=== PATIENT | female | born 1980 ===

== ENCOUNTER 2017-05-12 19:39 | Inpatient (IN) | payer BC, OTHER ==
[2017-05-12] MEDS: Lactated Ringer's 1,000 ML IV SCH (21:12)
--- NOTE | 2017-05-12 21:54 | OBHP ---
Datetime: 05/12/2017 21:49 IP Adm Impression: Term, intrauterine IP Admit Plan: Admit to unit Admit Comment, IP Provider: 36 y/o @ 40.1 wks GA MOLLY 05/11/17 reports having lower back pain and right sided hip pain worsening since last few weeks of , with cramping pain increasing in frequency and intensity. pt deies any lof, vb, and reports normal movements. Pt states has b een receving regular care and was infomred also by MD that fluid of baby was decreasing. Pt deneis any discharge, itching, bowel or bladder complaints. 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: denies hx of abnormalpap, fibroids, ovarian cyst, STI PMH: deines PSH: knee surgery FHX; non contriubotry SHX: negative etoh/tobacc/drugs MEDS: PNV A/P 36 y/o @ 40.1 wks GA, AMA, post EDC in early labor -admit to L+D -pain managment -npo, ivf -cont toco and efm -cervidil plan as per PMD - Pelvic Type - PN: Adequate Extremities - PN: Normal Abdomen - PN: Normal Back - PN: Normal Breast - PN: Not Done Lungs - PN: Normal Heart - PN: Normal Thyroid - PN: Normal Neurologic - PN: Normal HEENT - PN: Normal General - PN: Normal Presentation-Admit: Vertex FHR - Baseline A Provider: 135 Membranes, Provider: Intact Gestation - Est Wks by US: 40.1 IP Hx Assessment: The History has been Reviewed and is Current EGA AdmitDate IP: 40.1 Vital Signs Provider: Reviewed; Within Normal Limits IP Chief Complaint: Uterine contractions NICHD Variability Prov Fetus A: Moderate 6-25bpm NICHD Accel Fetus A IP Provider: 15X15 FHR Category Provider Fetus A: Category III NICHD Decel Fetus A IP Provider: None Dilatation, Provider: 2 Effacement, Provider: 50 Station, Provider: -3 Genitourinary Exam: Normal DTRs - PN: Normal
--- NOTE | 2017-05-12 21:57 | OBADHP ---
Datetime: 05/12/2017 21:49 Admit Comment, IP Provider: 36 y/o @ 40.1 wks GA MOLLY 05/11/17 reports having lower back pain and right sided hip pain worsening since last few weeks of , with cramping pain increasing in frequency and intensity. pt denies any lof, vb, and reports normal movements. Pt states has been receving regular care and was infomred also by MD that fluid of baby was decreasing. P t denies any discharge, itching, bowel or bladder complaints. 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 hx of abnormal pap, fibroids, ovarian cyst, STI PMH: deines PSH: knee surgery FHX; non contriubotry SHX: negative etoh/tobacc/drugs MEDS: PNV A/P 36 y/o @ 40.1 wks GA, AMA, post EDC in early labor -admit to L+D -pain managment -npo, ivf -cont toco and efm -cervidil plan as per PMD Pelvic Type - PN: Adequate Extremities - PN: Normal Abdomen - PN: Normal Back - PN: Normal Breast - PN: Not Done Lungs - PN: Normal Heart - PN: Normal Thyroid - PN: Normal Neurologic - PN: Normal HEENT - PN: Normal General - PN: Normal Presentation-Admit: Vertex FHR - Baseline A Provider: 135 Membranes, Provider: Intact Contraction Comments Provider: q7-10min Gestation - Est Wks by US: 40.1 IP Hx Assessment: The History has been Reviewed and is Current Vital Signs Provider: Reviewed; Within Normal Limits IP Chief Complaint: Uterine contractions NICHD Variability Prov Fetus A: Moderate 6-25bpm NICHD Accel Fetus A IP Provider: 15X15 FHR Category Provider Fetus A: Category III NICHD Decel Fetus A IP Provider: None Dilatation, Provider: 2 Effacement, Provider: 50 Station, Provider: -3 Genitourinary Exam: Normal DTRs - PN: Normal EGA AdmitDate IP: 40.1 IP Adm Impression: Term, intrauterine IP Admit Plan: Admit to unit
[2017-05-12 22:08] LABS: BASO % 0.4 % (0.0-2.0); EOS % 0.4 % (0.0-4.0); HEMATOCRIT 37.1 % (34.0-47.0); LYMPH # 1.5 K/uL (1.0-4.3); MEAN CELL VOLUME 94.4 fL (81.0-99.0); MEAN CORPUSCULAR HEMOGLOBIN 32.7 pg (27.0-31.0); MEAN CORPUSCULAR HGB CONC 34.6 g/dL (33.0-37.0); MEAN PLATELET VOLUME 7.3 fL (7.2-11.7); RED CELL DISTRIBUTION WIDTH 14.1 % (11.5-14.5); WHITE BLOOD COUNT 10.1 K/uL (4.8-10.8)
[2017-05-12 22:20] LABS: CHLORIDE 100 mmol/L (98-107); RBC URINE 1 /hpf (0-3); SODIUM 134 mmol/L (132-148); URINE BACTERIA MOD (<OCC); URINE BILIRUBIN NEGATIVE (NEGATIVE); URINE BLOOD NEGATIVE (NEGATIVE); URINE COLOR Straw (YELLOW); URINE GLUCOSE (UA) NORMAL (Normal); URINE KETONE NEGATIVE (NEGATIVE); URINE LEUKOCYTE ESTERASE NEG Leu/uL (Negative); URINE PROTEIN NEGATIVE (NEGATIVE); URINE UROBILINOGEN NORMAL mg/dL (0.2-1.0); WBC URINE 1 /hpf (0-5)
[2017-05-12 22:22] LABS: GFR AFRICAN-AMERICAN > 60
[2017-05-12 22:23] LABS: ALB/GLOB RATIO 1.2 (1.0-2.1); ALKALINE PHOSPHATASE 152 U/L (38-126); ALT/SGPT 21 U/L (9-52); AST/SGOT 19 U/L (14-36); BILIRUBIN,TOTAL 0.3 mg/dL (0.2-1.3); BLOOD UREA NITROGEN 6 mg/dL (7-17); CALCIUM 8.6 mg/dl (8.6-10.4); CARBON DIOXIDE 20 mmol/L (22-30); GLUCOSE,RANDOM 99 mg/dL (65-105); TOTAL PROTEIN 6.2 g/dL (6.3-8.3)
[2017-05-13] MEDS: Lactated Ringer's 1,000 ML IV SCH (03:00)
--- NOTE | 2017-05-13 04:43 | OBPN ---
Datetime: 05/13/2017 04:38 IP Progress Impression: Normal progression of labor IP Procedures: Artificial ROM IP Progress Plan: Continue present management Membranes, Provider: Ruptured Amniotic Fluid Color, Provider: Clear Contraction Comments Provider: q 1-2 min FHR - Baseline A Provider: 135 Gestation - Est Wks by US: 40.2 Presentation-Admit: Vertex IP Progress Note Comment: pt seen and examined complaining of severe pressure and pain with ctx. dec lined pain medication. pt denies lof, vb, +FM VSS VE: /-1 AROM, clear, small amount of fluid A/P @ 40.2 wks GA, AMA, in active labor -cont current managment plan as per pmd NICHD Accel Fetus A IP Provider: 15X15 FHR Category Provider Fetus A: Category I NICHD Variability Prov Fetus A: Moderate 6-25bpm Dilatation, Provider: 6 Effacement, Provider: 90 Station, Provider: -1 NICHD Decel Fetus A IP Provider: None Datetime: 05/12/2017 21:49 Vital Signs Provider: Reviewed; Within Normal Limits
--- NOTE | 2017-05-13 05:17 | OBPN ---
Datetime: 05/13/2017 04:38 IP Progress Plan: Continue present management; Anticipate Vaginal Delivery Dilatation, Provider: 8 Station, Provider: 0
--- NOTE | 2017-05-13 06:37 | OBDS ---
DELIVERY PERSONNEL Delivery Doctor: LISA Sierra Nurse: Rupal Hobson OBT Presentation Specialist: Rick Jaime RN MATERNAL INFORMATION Medications in Delivery: NONE Estimated Blood Loss (ml): 300 Placenta Cultured: No Maternal Complications: None RN Comments: PT was induced with cervidil . delivered live baby boy, 9/9 Provider Comments: SIXTO, right anterior shoulder no dystocia, loose nuchal cord delivered through. LABOR SUMMARY EDC: 05/11/2017 00:00 No. Babies in Womb: 1 LABOR INFORMATION Reason for Induction: Postterm Cervical Ripening Agents: CERVIDIL IN PLACE Group B Beta Strep: Negative Steroids Given: None Reason Steroids Not Administered: Not Applicable STAGES OF LABOR Stage 3 hrs: 0 Stage 3 min: 8 VAGINAL DELIVERY Episiotomy: None Laceration Extension: N/A Laceration Type: None Sponge Count Correct: Yes Sharps Count Correct: Yes BABY A INFORMATION Delivery Date/Time: 05/13/2017 06:14 Method of Delivery: Vaginal Born in Route : No : N/A Forceps: N/A Vacuum Extraction: N/A Shoulder Dystocia : No SHOULDER DYSTOCIA BABY A Delivery Date/Time: 05/13/2017 06:14 PRESENTATION/POSITION BABY A Presentation: Cephalic Cephalic Presentation: Vertex Vertex Position: Left Occipital Anterior Breech Presentation: N/A PLACENTA INFORMATION BABY A Placenta Delivery Time : 05/13/2017 06:22 Placenta Method of Delivery: Spontaneous Placenta Status: Delivered SCORES BABY A Heart Rate 1 min: >100 bpm Resp Effort 1 min: Good Cry Reflex Irritability 1 min: Cough or Sneeze or Pulls Away Muscle Tone 1 min: Active Motion Color 1 min: Body Clarinda, Extremities Blue Resuscitation Effort 1 min: Tactile Stimulation SCORE 1 MIN: 9 Heart Rate 5 min: >100 bpm Resp Effort 5 min: Good Cry Reflex Irritability 5 min: Cough or Sneeze or Pulls Away Muscle Tone 5 min: Active Motion Color 5 min: Body Clarinda, Extremities Blue SCORE 5 MIN: 9 INFORMATION BABY A Gestational Age at Delivery: 40.2 Gestational Status: Term Infant Outcome : Liveborn Condition : Stable Sex: Male IDENTIFICATION/MEDS BABY A ID Band Number: [id number] Sensor Number: [id number] WEIGHT/LENGTH BABY A Birthweight (gms): 3415 Weight (lb): 7 Weight (oz): 8 Infant Length Inches: 20.00 Infant Length cms: 50.8 CORD INFORMATION BABY A No. Cord Vessels: 3 Nuchal Cord : Around Neck x1, Loose Suction: None ASSESSMENT BABY A Complications: None Physical Findings at Delivery: Within Normal Limits Infant Respirations: Appears Normal Glove Brusher/ALS Called : Yes Care By: DR FERMIN Transferred To: Nursery
[2017-05-13] MEDS ORDERED: Benzocaine/Menthol 20%-0.5% Topical Spray (60 ml) TOP PRN (06:38)
[2017-05-13] MEDS: Multiple Vitamins Tab PO SCH (11:03)
[2017-05-14 08:35] LABS: BASO % 0.3 % (0.0-2.0); EOS % 0.3 % (0.0-4.0); HEMATOCRIT 36.7 % (34.0-47.0); LYMPH # 1.2 K/uL (1.0-4.3); LYMPH % 9.6 % (20.0-40.0); MEAN CORPUSCULAR HEMOGLOBIN 33.2 pg (27.0-31.0); MEAN PLATELET VOLUME 7.3 fL (7.2-11.7); MONO # 0.7 K/uL (0.0-0.8); PLATELET COUNT 269 K/uL (130-400); RED CELL DISTRIBUTION WIDTH 14.2 % (11.5-14.5); WHITE BLOOD COUNT 12.1 K/uL (4.8-10.8)
[2017-05-14 09:21] LABS: NEUTROPHIL 91 % (50-75); TOTAL CELLS COUNTED 100
[2017-05-14] MEDS: Multiple Vitamins Tab PO SCH (10:07)
--- NOTE | 2017-05-14 10:13 | OBPPN ---
Datetime: 05/14/2017 10:11 PP Pain Prov: Within normal limits PP Nausea Prov: Denies PP Flatus Prov: Yes PP Breasts Prov: Normal PP Heart Prov: Normal PP Lungs Prov: Normal PP Abdomen/Uterus Prov: Normal PP Lochia Prov: Normal PP Vulva/Perineum Prov: Normal PP CVA Tenderness Prov: Normal PP Extremities Prov: Normal PP Impression Prov: Normal progression PP Plan Prov: Discharge
--- NOTE | 2017-05-14 10:15 | OBDCSUM ---
Datetime: 05/14/2017 10:12 Discharged to, Provider: Home Follow up at, Provider: [facility] Instr Activity: Normal activity Disch Instr Diet: Regular Discharge Instructions, Provider: Routine instructions given Discharge Diagnosis, Provider: Term Delivered Discharge Time: 05/14/2017 10:12 Follow up in weeks, Provider: 6 weeks Disch Referrals: None Contraception discussed, Prov: Yes Disch Activity Restrictions: No exercising; No lifting; Nothing in vagina - [place], tampons, do fanta Contraception after Delivery: Not Planning to Use
[2017-05-14 16:42] VITALS: BP 107/71; PULSE 72; RESP 18; TEMP 96.9; O2SAT 97
== END 2017-05-14 18:45 | disposition home or self-care (01) | DRG 775 ==
LOC: C.EROB 19:39 → C.4D 20:58 → C.4M 05-13 08:40
PROVIDERS: ADMIT Obstetrics & Gynecology; ATTEND Obstetrics & Gynecology
PROC: 3E0P7GC Introduction of Other Therapeutic Substance into Female Reproductive, Via Natural or Artificial Opening (ICD-10-PCS; 2017-05-12)
PROC: 10E0XZZ Delivery of Products of Conception, External Approach (ICD-10-PCS; principal; 2017-05-13)
PROC: 10907ZC Drainage of Amniotic Fluid, Therapeutic from Products of Conception, Via Natural or Artificial Opening (ICD-10-PCS; 2017-05-13)
DX: O48.0 Post-term pregnancy (principal); O69.81X0 Labor and delivery complicated by cord around neck, without compression, not applicable or unspecified; O09.523 Supervision of elderly multigravida, third trimester; Z3A.40 40 weeks gestation of pregnancy; Z37.0 Single live birth; Z23 Encounter for immunization